=== PATIENT | female | born 1990 | race Caucasian/White ===

== ENCOUNTER 2019-11-20 10:36 | Inpatient (IN) | payer SELFPAY ==
[2019-11-20 11:56] LABS: #Eosinphils 0.4 thou/uL (0.0-0.7); #Lymphocytes 0.9 thou/uL (1.20-3.40); #Monocytes 0.5 thou/uL (0.11-0.59); #Neutrophils 7.5 thou/uL (1.40-6.50); %Basophils 0.1 % (0.0-1.0); %Eosinophils 4.6 % (0.0-10.0); %Lymphocytes 9.7 % (21.0-51.0); %Monocytes 5.3 % (0.0-10.0); %Neutrophils 80.3 % (42.0-75.0); Mean Corpuscular HGB CONC 33.3 g/dL (32.0-36.0); Mean Corpuscular Hemoglobin 31.1 pg (27.0-31.0); Mean Corpuscular Volume 93.3 fL (78.0-98.0); Mean Platelet Volume 8.8 fL (7.4-10.4); Platelet Count 153 thou/uL (130-400); Red Blood Cell (RBC) Count 4.51 mill/uL (4.20-5.40); White Blood Cell (WBC) Count 9.3 thou/uL (4.8-10.8)
[2019-11-20 11:58] LABS: BHCG - Serum Negative (NEGATIVE); Pregs Control Background? CLEAR/WHITE (CLR/WHITE); Pregs Control Bar Appear? YES (CONTROL BAR)
--- NOTE | 2019-11-20 12:02 | RAD ---
EXAM: Single view of the chest HISTORY: Abdominal pain for 5 days COMPARISON: None FINDINGS: Single view of the chest shows a normal sized cardiomediastinal silhouette. There is no berta dence of consolidation, mass, or pleural effusion. The bones are unremarkable. IMPRESSION: No evidence of acute cardiopulmonary disease
[2019-11-20 12:18] LABS: ALT (SGPT) 126 U/L (8-55); AST (SGOT) 58 U/L (5-34); Albumin 4.1 g/dL (3.5-5.0); Alkaline Phosphatase 219 U/L (40-110); Anion Gap 19 mmol/L (10-20); BUN (Urea Nitrogen) 7 mg/dL (7.0-18.7); Bilirubin, Total 4.1 mg/dL (0.2-1.2); Calc. Creatinine Clearance 0 mL/min (70-130); Carbon Dioxide 16 mmol/L (22-29); Chloride 103 mmol/L (98-107); Estimated GFR-MDRD 86; Globulin 3.5 g/dL (2.4-3.5); Glucose 87 mg/dL (70-105); Lipase 51 U/L (8-78); Potassium 4.5 mmol/L (3.5-5.1); Protein, Total 7.6 g/dL (6.0-8.3); Sodium 133 mmol/L (136-145)
[2019-11-20] MEDS ORDERED: Ondansetron PF 4 MG/2 ML Vial ONE (12:46)
[2019-11-20] MEDS ORDERED: Ketorolac Tromethamine 30 MG/ML VIAL ONE (12:46)
--- NOTE | 2019-11-20 13:01 | ULT ---
EXAM: US Gallbladder RUQ CLINICAL HISTORY: Right upper quadrant pain. COMPARISON: None. FINDINGS: Pancreas: Limited evaluation the pancreas. Visualized pancreatic parenchyma is grossly unremarkable Liver:Hepatic parenchyma has a normal echotexture. No hepatic masses or intrahepatic biliary dilatati on. The contour of the hepatic margin is maintained. Gallbladder: Gallbladder is not appreciated sonographically. Correlate for previous cholecystectomy v ersus contracted gallbladder due to nonfasting state. Gan's sign:Not commented upon Portal Vein: Patent. Appropriate directional flow Bile ducts: Suboptimal evaluation the common bile duct. Common hepatic duct appears to be 0.2 cm. Right kidney: No hydronephrosis. Right kidney measures 3.8 x 10.9 x 5.9 cm in length. IMPRESSION: 1. No acute abnormality. 2. Limited evaluation as described above. 3. If there is concern for cholecystitis, consider HIDA scan.
[2019-11-20] MEDS ORDERED: Acetaminophen 500 MG TAB ONE (13:04)
--- NOTE | 2019-11-20 13:45 | CT ---
CT Abdomen Pelvis W Con: 11/20/2019 1:06 PM CLINICAL INFORMATION: Aching abdominal pain COMPARISON: None. TECHNIQUE: Multiple contiguous axial images were obtained and a CT of the abdomen and pelvis with IV contrast. C oronal and sagittal reformats were performed. FINDINGS: Lower Chest: within normal limits. Abdomen: Liver: within normal limits. Bile Ducts: Normal caliber. Gallbladder: No calcified gallstones. Normal caliber wall. Pancreas: within normal limits. Spleen: within normal limits. Adrenals: within normal limits. Kidneys: within normal limits. Pelvis: Reproductive Organs: No pelvic masses. A trace amount of free fluid in the pelvis is likely physiolog ic. Ureters: within normal limits. Bladder: within normal limits. Peritoneum: No free air, no fluid collection. Bowel: Normal caliber. The appendix is not definitely visualized. Mesentery and Retroperitoneum: No enlarged mesenteric or retroperitoneal lymph nodes. Vessels: Normal. Abdominal Wall: within normal limits. Bones: Within normal limits IMPRESSION: No evidence of acute intraabdominal or pelvic abnormality.
[2019-11-20] MEDS ORDERED: MEROPENEM 1 GM/50 ML 1 GM in Premix Bag 1 BAG IVPB SCH (14:45)
--- NOTE | 2019-11-20 15:44 | PDOC.HHP ---
Hospitalist HPI - History of Present Illness RUQ abdominal pain History of Present Illness: Ms. Yu is a 29 y/o lady with no PMH who presents with RUQ abdominal pain, reportedly started on Saturday. States character of pain is pressure like, radiating across upper part of abdomen, timing has been intermittent since saturday, associated with an episode of vomiting and nausea on Saturday, severity is 7/10 at it's worst. She states she went to her primary care office where they redirected her to the ED because she had a fever of 102. In the ED, elevated Tbili of 4.1 and midly elevated LFTs, CT scan of abdomen unremarkable. She had Tmax of 103, given Merrem. Denies cp, sob, nausea, vomiting, diarrhea, headache, or associated sxs. Hospitalist ROS - Review of Systems Constitutional: denies: fever, chills, sweats, weakness, malaise, other Eyes: denies: pain, vision change, conjunctivae inflammation, eyelid inflammation, redness, other ENT: denies: ear pain, ear discharge, nose pain, nose discharge, nose congestion , mouth pain, mouth swelling, throat pain, throat swelling, other Respiratory: denies: cough, dry, shortness of breath, hemoptysis, SOB with excertion, pleuritic pain, sputum, wheezing, other Cardiovascular: denies: chest pain, palpitations, orthopnea, paroxysmal noc. dyspnea, edema, light headedness, other Gastrointestinal: reports: nausea, abdominal pain. 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 Gastrointestinal: reports: no pertinent history Heme/Onc: reports: no pertinent history Hepatobiliary: reports: no pertinent history Psych: reports: no pertinent history Musculoskeletal: reports: no pertinent history Rheumatologic: reports: no pertinent history Infectious Disease: reports: no pertinent history ENT: reports: no pertinent history Renal/: reports: no pertinent history Endocrine: reports: no pertinent history Dermatology: reports: no pertinent history - Past Surgical History Past Surgical History: reports: no pertinent history - Family History Family History: reports: hypertension - Social History Smoking Status: Never smoker Alcohol: reports: Occassional Drugs: reports: none Living Situation: With Family Activity level: independent ambulation - Exam General Appearance: NAD, awake alert Eye: PERRL, anicteric sclera ENT: normocephalic atraumatic, no oropharyngeal lesions, moist mucosa Neck: supple, symmetric, no JVD, no thyromegaly, no lymphadenopathy, no carotid bruit Heart: RRR, no murmur, no gallops, no rubs, normal peripheral pulses Respiratory: CTAB, no wheezes, no rales, no ronchi, normal chest expansion, no tachypnea, normal percussion Gastrointestinal: soft, non-distended, normal bowel sounds, no palpable masses, no hepatomegaly, no splenomegaly, no bruit, tender to palpation (RUQ) Extremities: no cyanosis, no clubbing, no edema Skin: normal turgor, no lesions, no rashes Neurological: cranial nerve grossly intact, normal sensation to touch, no weakness, no focal deficits, no new deficit Musculoskeletal: normal tone, normal strength, no muscle wasting Psychiatric: normal affect, normal behavior, A&O x 3 Hospitalist Results - Labs Result Diagrams: 11/20/19 11:10 11/20/19 11:10 Lab results: WBC 9.3 thou/uL (4.8-10.8) 11/20/19 11:10 Hgb 14.0 g/dL (12.0-16.0) 11/20/19 11:10 Hct 42.1 % (36.0-47.0) 11/20/19 11:10 MCV 93.3 fL (78.0-98.0) 11/20/19 11:10 Plt Count 153 thou/uL (130-400) 11/20/19 11:10 Neutrophils % 80.3 % (42.0-75.0) H 11/20/19 11:10 Sodium 133 mmol/L (136-145) L 11/20/19 11:10 Potassium 4.5 mmol/L (3.5-5.1) 11/20/19 11:10 Chloride 103 mmol/L (98-107) 11/20/19 11:10 Carbon Dioxide 16 mmol/L (22-29) L 11/20/19 11:10 BUN 7 mg/dL (7.0-18.7) 11/20/19 11:10 Creatinine 0.79 mg/dL (0.6-1.1) 11/20/19 11:10 Glucose 87 mg/dL (70-105) 11/20/19 11:10 Lactic Acid 1.0 mmol/L (0.5-2.2) 11/20/19 11:10 Calcium 9.0 mg/dL (7.8-10.44) 11/20/19 11:10 Total Bilirubin 4.1 mg/dL (0.2-1.2) H 11/20/19 11:10 AST 58 U/L (5-34) H 11/20/19 11:10 ALT 126 U/L (8-55) H 11/20/19 11:10 Alkaline Phosphatase 219 U/L (40-110) H 11/20/19 11:10 Serum Total Protein 7.6 g/dL (6.0-8.3) 11/20/19 11:10 Albumin 4.1 g/dL (3.5-5.0) 11/20/19 11:10 Lipase 51 U/L (8-78) 11/20/19 11:10 - Radiology Interpretation CT scan - abdomen Status: report reviewed by az Hospitalist H&P A/P - Problem (1) Abdominal pain Code(s): R10.9 - UNSPECIFIED ABDOMINAL PAIN Status: Acute Qualifiers: Qualified Code(s): R10.11 - Right upper quadrant pain Assessment and Plan: DDX: Cholangitis, Cholecystitis, Choledocholithiasis, no stones seend on U/S or CT, pending HIDA, unclear etiology (2) Elevated liver enzymes Code(s): R74.8 - ABNORMAL LEVELS OF OTHER SERUM ENZYMES Status: Acute - Plan Plan: Admit for med/surg obs. Discussed with ED, US abdomen and CT scan unremarkable, CBD cannot be commented upon GI and surgical teams have been consutled by ED Pending HIDA scan Given fever, RUQ pain, will add empiric Zosyn for possible cholangitis Follow up cultures NS @ 75ml/hr Zofran PRN for nausea Morphine PRN for pain DVT Prophylaxis: SCDs Code status: Full Dispo: Admit to medical obs. Evaluation of ab pain.
[2019-11-20 16:02] VITALS: BMI 24.9
[2019-11-20] MEDS: Sodium Chloride 0.9% 1,000 ML IV SCH (16:55)
[2019-11-20] MEDS ORDERED: Sodium Chloride 0.9% 500 ML IV SCH (18:00)
[2019-11-20] MEDS: Piperacillin/Tazobactam 3.375 GM in Sodium Chloride 0.9% 100 ML IVPB SCH ×2 (18:18→23:35)
[2019-11-20] MEDS: traMADol HCl 50 MG TAB PO PRN (18:25)
[2019-11-20] MEDS: Acetaminophen 325 MG TAB PO PRN (18:25)
--- NOTE | 2019-11-20 21:42 | CON ---
DATE OF CONSULTATION: 11/20/2019 REASON FOR CONSULTATION: Abdominal pain, nausea, fever, and abnormal LFTs. HISTORY OF PRESENT ILLNESS: Rebecca Yu is a very pleasant 29-year-old, healthy female, developed abdominal pain this past Saturday. The pain was sudden in onset. The pain was cramping in nature. The pain was over the right upper quadrant and also across the abdomen. Pain was cramping in nature and also had some nausea and had one episode of vomiting. The pain persisted over the past 2 to 3 days. She did not want to come to the hospital because of the holidays. On , she had a reasonably good day and the pain was not as bad as it was before. The pain got worse over the next 24 hours and she has gone to see Dr. Derrick Mcdermott's PA. Because of the fever, she was advised to come to the ER. The patient has had no prior health issues. She had no prior surgeries. The patient has had no previous abdominal pain. The abdominal pain started this past Saturday. Pain was cramping in nature and [id number]. She had no fever started. She had mild nausea, but had one episode of vomiting subsequently. At the present time, she appears very comfortable, in no acute distress. Apparently, she has used pain medication few minutes ago. The patient had abnormal LFTs in the ER. Her bilirubin level was 4.1, alkaline phosphatase and transaminases are slightly elevated. She had abdominal sonogram, which shows no bile duct dilatation. The gallbladder appears contracted and not visualized. Abdominal CAT scan, which revealed gallbladder and no bile duct dilation seen. The patient had no leukocytosis. There is no bandemia. She had been empirically started on IV antibiotics for possible cholangitis. She has no relevant history. ALLERGIES: NONE. SOCIAL HISTORY: The patient does not smoke or drink alcohol. MEDICAL ILLNESSES: None. PAST SURGICAL HISTORY: None. MENSTRUAL HISTORY: Periods are irregular. She was on oral contraceptives 2 months ago. She could take care of the control pill couple of days ago because of abdominal pain. She was having her menstrual cycles from this morning. FAMILY HISTORY: Grandmother had gallbladder disease and had her gallbladder removed. Otherwise, family history is not known. REVIEW OF SYSTEMS: 10-point system reviewed. CONSTITUTIONAL: No history of fever. No weight loss. Has good exercise tolerance. HEENT: No chronic headache. Eyes; no diplopia, no impaired vision. Ears; no hearing loss. Nose; no nosebleed. Throat; no sore throat, coughing. NECK: No stiffness or any limitation of movement. BREASTS: No breast masses or discharge. LUNGS: No chronic coughing, hemoptysis, or dyspnea. CARDIOVASCULAR SYSTEM: No chest pain. No palpitation. No dyspnea, orthopnea, or PND. GI: As in history of present illness. : No dysuria, frequency of urination, or hematuria. MUSCULOSKELETAL: Unremarkable. NEUROENDOCRINE: Unremarkable. PSYCHIATRY: Unremarkable. PHYSICAL EXAMINATION: GENERAL: She is thin built, appears very comfortable. VITAL SIGNS: Temperature in the ER was 103, but now down to 98.2 degrees Fahrenheit. Her pulse is around 67, blood pressure 91/52. HEENT: She is icteric. NECK: Supple. No adenitis or thyromegaly noted. CARDIOVASCULAR SYSTEM: First and second heart sounds heard. LUNGS: Clear to auscultation. ABDOMEN: Soft. Abdomen is nondistended. Abdomen is tender over the right upper quadrant, epigastric area. She has no rebound or guarding. No organomegaly. No masses. Bowel sounds normal. EXTREMITIES: Reveal no edema. LABORATORY DATA: Shows normal WBC count of 9300, no bandemia, polymorphs 80, lymphocytes 9, monocytes 5. Hemoglobin 14, hematocrit 42.1, MCV 93.3. Chem-7 is normal. Sodium 133, bilirubin 4.1, AST is 258, ALT 126, alkaline phosphatase 219, lipase 51. Pulmonary tests negative. Abdominal CAT scan shows no abnormal findings except for normal appearing bile duct. No bile duct dilatation. Abdominal sonogram shows no gallbladder identified, but possibly contracted gallbladder. The common hepatic duct is 2 mm. CLINICAL IMPRESSION: Abdominal pain, nausea, and vomiting. Abnormal LFTs suggestive of cholecystitis. I am not sure if she has any cholangitis. She does not appear septic and she had no leukocytosis, no bandemia. Cholecystitis can present with abnormal LFTs. At the present time, the workup has been basically negative as there is no bile duct dilation seen and also no definite gallstones seen. The gallbladder was not visualized from the sonogram. I did discuss with Dr. Mcleod and the plan is to proceed with a HIDA scan tomorrow. Dr. Parrent will evaluate the patient and I believe she most likely will need a cholecystectomy from the history and physical findings. This was conveyed to the patient's family. Job ID: [id number]
[2019-11-20] MEDS: Ondansetron PF 4 MG/2 ML Vial IVP PRN (23:38)
[2019-11-21] MEDS: Sodium Chloride 0.9% 1,000 ML IV SCH ×3 (00:45→21:24)
[2019-11-21] MEDS: Acetaminophen 325 MG TAB PO PRN ×2 (00:45→23:02)
[2019-11-21] MEDS: traMADol HCl 50 MG TAB PO PRN ×2 (00:45→22:59)
[2019-11-21] MEDS: Morphine 2 MG/ML SYRINGE SLOW IVP PRN ×2 (03:16→11:48)
[2019-11-21] MEDS: Piperacillin/Tazobactam 3.375 GM in Sodium Chloride 0.9% 100 ML IVPB SCH ×3 (05:40→19:31)
[2019-11-21 05:46] LABS: #Eosinphils 0.4 thou/uL (0.0-0.7); #Lymphocytes 0.7 thou/uL (1.20-3.40); #Monocytes 0.3 thou/uL (0.11-0.59); #Neutrophils 5.6 thou/uL (1.40-6.50); %Basophils 0.2 % (0.0-1.0); %Eosinophils 5.8 % (0.0-10.0); %Lymphocytes 9.8 % (21.0-51.0); %Monocytes 3.5 % (0.0-10.0); %Neutrophils 80.7 % (42.0-75.0); Hemoglobin 11.5 g/dL (12.0-16.0); Mean Corpuscular HGB CONC 33.7 g/dL (32.0-36.0); Mean Corpuscular Hemoglobin 31.8 pg (27.0-31.0); Mean Corpuscular Volume 94.3 fL (78.0-98.0); Mean Platelet Volume 8.7 fL (7.4-10.4); Platelet Count 136 thou/uL (130-400); RBC Distribution Width 11.9 % (11.5-14.5); Red Blood Cell (RBC) Count 3.62 mill/uL (4.20-5.40)
[2019-11-21 06:13] LABS: ALT (SGPT) 80 U/L (8-55); AST (SGOT) 27 U/L (5-34); Alkaline Phosphatase 153 U/L (40-110); Anion Gap 9 mmol/L (10-20); BUN (Urea Nitrogen) 8 mg/dL (7.0-18.7); Bilirubin, Total 3.8 mg/dL (0.2-1.2); Calc. Creatinine Clearance 122 mL/min (70-130); Calcium 7.6 mg/dL (7.8-10.44); Carbon Dioxide 23 mmol/L (22-29); Chloride 107 mmol/L (98-107); Estimated GFR-MDRD Greater than 90; Globulin 2.6 g/dL (2.4-3.5); Glucose 103 mg/dL (70-105); Potassium 3.8 mmol/L (3.5-5.1); Protein, Total 5.6 g/dL (6.0-8.3); Sodium 135 mmol/L (136-145)
[2019-11-21] MEDS ORDERED: Acetaminophen 1,000 MG in Premix Bag 1 BAG IVPB PRN (09:41)
[2019-11-21] MEDS ORDERED: Ketorolac Tromethamine 30 MG/ML VIAL IVP SCH (11:15)
[2019-11-21] MEDS: Ondansetron PF 4 MG/2 ML Vial IVP PRN (13:24)
--- NOTE | 2019-11-21 13:43 | NM ---
EXAM: Nuclear medicine hepatobiliary scan HISTORY: Right upper quadrant abdominal pain TECHNIQUE: A nuclear medicine hepatobiliary scan was performed after administration of 5.1 mCi of rolo hnetium 99m mebrofenin. COMPARISON: None FINDINGS: Prompt uptake of the radiopharmaceutical by the liver is seen. No photopenic liver defects are seen. Minimal excretion of the radiopharmaceutical is seen by the liver. Biliary activity is unable to be appreciated. Gallbladder activity is not seen. Bowel activity is seen within 30 minutes. IMPRESSION: The gallbladder was not visualized suspicious for acute cholecystitis. Alternatively, the patient cou ld have severe hepatocellular dysfunction with minimal excretion of the contrast into the biliary tree.
--- NOTE | 2019-11-21 14:08 | PDOC.HOSPP ---
- Subjective Encounter Date: 11/21/19 Encounter Time: 13:10 Subjective: RUQ pain.. - Objective Vital Signs & Weight: Vital Signs (12 hours) Temp Pulse Resp BP BP BP Pulse Ox 11/21/19 11:45 97.8 F 114 H 99/64 11/21/19 08:10 99.0 F 99 16 104/51 L 95 11/21/19 03:12 98.4 F 87 16 90/52 L 94 L Weight Admit Weight 154 lb 4.8 oz Weight 154 lb 4.8 oz I&O: 11/20/19 11/21/19 11/22/19 06:59 06:59 06:59 Intake Total 2258 1 Output Total 400 800 Balance 6040 -789 Result Diagrams: 11/21/19 05:38 11/21/19 05:38 Hospitalist ROS - Medication Medications: Active Medications Generic Name Dose Route Start Last Admin Trade Name Freq PRN Reason Stop Dose Admin Acetaminophen 325 mg 11/20/19 17:52 11/21/19 00:45 Tylenol PO 325 mg Q6H PRN Administration Pain Sodium Chloride 1,000 mls @ 125 mls/hr 11/20/19 15:45 11/21/19 12:02 Normal Saline 0.9% IV 1,000 mls .Q8H JESSY Administration Piperacillin Sod/Tazobactam 100 mls @ 200 mls/hr 11/20/19 18:00 11/21/19 13: 46 Sod 3.375 gm/ Sodium Chloride IVPB 100 mls Q6HR JESSY Administration Acetaminophen 1,000 mg/ Device 100 mls @ 400 mls/hr 11/21/19 09:41 11/21/19 13:07 IVPB 11/22/19 09:42 100 mls Q6H PRN Administration Fever/Mild Pain Morphine Sulfate 2 mg 11/20/19 15:40 11/21/19 11:48 Morphine SLOW IVP 2 mg Q4H PRN Administration Severe Pain (7-10) Ondansetron HCl 4 mg 11/20/19 15:40 11/21/19 13:24 Zofran IVP 4 mg Q6H PRN Administration Nausea/Vomiting Tramadol HCl 50 mg 11/20/19 17:51 11/21/19 00:45 Ultram PO 50 mg Q6H PRN Administration Pain - Exam Eye: scleral icterus Neck: no JVD Heart: RRR Respiratory: CTAB Gastrointestinal: soft Gastrointestinal - other findings: +RUQ tenderness.. Extremities: no edema Psychiatric: normal affect Hosp A/P (1) Abdominal pain Code(s): R10.9 - UNSPECIFIED ABDOMINAL PAIN Status: Acute Qualifiers: Qualified Code(s): R10.11 - Right upper quadrant pain (2) Elevated liver enzymes Code(s): R74.8 - ABNORMAL LEVELS OF OTHER SERUM ENZYMES Status: Acute - Plan ?Cholecystitis.. Consult surgery..
[2019-11-21] MEDS ORDERED: Fentanyl 100 MCG/2 ML VIAL SLOW IVP PRN (14:36)
--- NOTE | 2019-11-21 15:08 | CON ---
DATE OF CONSULTATION: 11/21/2019 CHIEF COMPLAINT: Abdominal pain. HISTORY OF PRESENT ILLNESS: This is a 29-year-old female, who has a history of pain in her right upper abdomen and upper middle abdomen since -Saturday. She describes that as sharp pain, goes away when she lays flat. It never completely goes away. This is associated with overall not feeling well. She has had borderline temperatures. She has had body aches. She has had headache. Seen in the emergency room, where ultrasound revealed contracted gallbladder without stones. CT scan showed no intraabdominal abnormality. She has now had HIDA scan, which shows either acute acalculous cholecystitis versus hepatocellular dysfunction. Her symptoms are improved with pain medicine. She still has temperatures up to 100. She is tachycardic at times as well. The patient denies history of gallstones, jaundice or pancreatitis. She denies foreign travel. She recently started a new medication, a new type of control pill, and at first thought that her overall sense of feeling ill was related to that, so they stopped. She was constipated on Jim and took MiraLAX with good results, but she denies history of severe vomiting. No severe diarrhea or dehydration. PAST MEDICAL HISTORY: Negative otherwise. PAST SURGICAL HISTORY: Negative otherwise. MEDICATIONS: Medicines taken daily none. ALLERGIES: NONE. FAMILY HISTORY: No history of GI-associated malignancies or anesthetic related complications. 10-system review of systems is otherwise negative unless described above. PHYSICAL EXAMINATION: VITAL SIGNS: Her pulse is 116. Her blood pressure is 105/59. Her temperature is 100.8. Her respirations are 20. HEENT: Sclerae anicteric. Oropharynx clear. NECK: No lymphadenopathy. CHEST: Clear. HEART: Increased rate, regular rhythm without murmur. ABDOMEN: Soft, diffusely tender, but more tender in the epigastric and right upper quadrant. She has right upper quadrant guarding without rebound. LABORATORY DATA: White blood cell count is 7, hemoglobin is 11, and platelet count is 136. Sodium 135, potassium 3.8, and creatinine 0.75. Bilirubin 3.8, AST 27, ALT 80, alk phos 153. Albumin is 3. Lipase yesterday was 51. CT, ultrasound, HIDA as above. ASSESSMENT: Abdominal pain, mostly right upper quadrant with elevated liver function test. Ultrasound shows no gallstones. HIDA shows no obvious obstruction of the common bile duct because there was uptake in the duodenum, but it does not show the gallbladder. These findings could be consistent with acalculous cholecystitis, but that does not explain the body aches or the liver function test elevation. She could have some component of acalculous cholecystitis along with whatever other else is going on. My recommendation is recheck liver function tests tomorrow, continue supportive care, would prefer to have her liver test trending down prior to general anesthetic and laparoscopic cholecystectomy. Agree with continuing antibiotics. Job ID: [id number]
[2019-11-21 16:39] LABS: HBCM Index 0.22 S/CO (0-0.79); HBSAg Index 0.26 S/CO (0-0.99); Hep A IgM AB Non-Reactive (NonReactive); Hep A IgM S/CO 0.14 S/CO (0-0.79); Hep B Surf Ag Non-Reactive S/CO (NonReactive); Hep C IgG Ab Non-Reactive (NonReactive); Hep C Index 0.12 S/CO (0-0.79); Hepatitis B Core IgM Abs Non-Reactive (NonReactive)
[2019-11-21] MEDS: Fentanyl 100 MCG/2 ML VIAL SLOW IVP PRN ×2 (18:17→21:22)
[2019-11-21] MEDS: Ketorolac Tromethamine 30 MG/ML VIAL IVP PRN (19:32)
[2019-11-22] MEDS: Piperacillin/Tazobactam 3.375 GM in Sodium Chloride 0.9% 100 ML IVPB SCH ×3 (00:06→12:44)
[2019-11-22] MEDS: Ketorolac Tromethamine 30 MG/ML VIAL IVP PRN ×2 (01:46→08:11)
[2019-11-22] MEDS: Sodium Chloride 0.9% 1,000 ML IV SCH ×2 (05:32→12:44)
[2019-11-22] MEDS: Fentanyl 100 MCG/2 ML VIAL SLOW IVP PRN (05:32)
[2019-11-22 06:26] LABS: #Eosinphils 0.7 thou/uL (0.0-0.7); #Lymphocytes 0.8 thou/uL (1.20-3.40); #Monocytes 0.2 thou/uL (0.11-0.59); #Neutrophils 4.8 thou/uL (1.40-6.50); %Basophils 0.2 % (0.0-1.0); %Eosinophils 10.4 % (0.0-10.0); %Monocytes 3.6 % (0.0-10.0); %Neutrophils 73.9 % (42.0-75.0); Mean Corpuscular HGB CONC 32.7 g/dL (32.0-36.0); Mean Corpuscular Hemoglobin 30.7 pg (27.0-31.0); Mean Corpuscular Volume 93.9 fL (78.0-98.0); Mean Platelet Volume 8.8 fL (7.4-10.4); Platelet Count 141 thou/uL (130-400); RBC Distribution Width 12.1 % (11.5-14.5); Red Blood Cell (RBC) Count 3.89 mill/uL (4.20-5.40); White Blood Cell (WBC) Count 6.5 thou/uL (4.8-10.8)
[2019-11-22 06:49] LABS: ALT (SGPT) 55 U/L (8-55); AST (SGOT) 18 U/L (5-34); Alkaline Phosphatase 145 U/L (40-110); Anion Gap 12 mmol/L (10-20); BUN (Urea Nitrogen) 11 mg/dL (7.0-18.7); Bilirubin, Total 4.3 mg/dL (0.2-1.2); Calc. Creatinine Clearance 148 mL/min (70-130); Calcium 7.8 mg/dL (7.8-10.44); Carbon Dioxide 21 mmol/L (22-29); Chloride 108 mmol/L (98-107); Estimated GFR-MDRD Greater than 90; Globulin 2.7 g/dL (2.4-3.5); Glucose 74 mg/dL (70-105); Potassium 3.6 mmol/L (3.5-5.1); Protein, Total 5.7 g/dL (6.0-8.3); Sodium 137 mmol/L (136-145)
--- NOTE | 2019-11-22 09:44 | PDOC.HOSPP ---
- Subjective Encounter Date: 11/22/19 Encounter Time: 07:35 Subjective: Feels better..Had pain medications earlier.. - Objective Vital Signs & Weight: Vital Signs (12 hours) Temp Pulse Resp BP Pulse Ox 11/22/19 08:04 99.6 F 93 16 104/57 L 91 L 11/22/19 04:00 98.1 F 82 18 91/50 L 96 11/22/19 00:00 98.2 F 82 18 91/55 L 98 Weight Admit Weight 154 lb 4.8 oz Weight 154 lb 4.8 oz I&O: 11/21/19 11/22/19 11/23/19 06:59 06:59 06:59 Intake Total 2258 3766 Output Total 400 1100 200 Balance 1858 2666 -200 Result Diagrams: 11/22/19 06:09 11/22/19 06:09 Hospitalist ROS - Medication Medications: Active Medications Generic Name Dose Route Start Last Admin Trade Name Freq PRN Reason Stop Dose Admin Acetaminophen 325 mg 11/20/19 17:52 11/21/19 23:02 Tylenol PO 325 mg Q6H PRN Administration Pain Fentanyl 50 mcg 11/21/19 14:36 11/22/19 05:32 Sublimaze SLOW IVP 50 mcg Q2H PRN Administration Moderate to Severe Pain (6-10) Sodium Chloride 1,000 mls @ 125 mls/hr 11/20/19 15:45 11/22/19 05:32 Normal Saline 0.9% IV 1,000 mls .Q8H JESSY Administration Piperacillin Sod/Tazobactam 100 mls @ 200 mls/hr 11/20/19 18:00 11/22/19 05: 31 Sod 3.375 gm/ Sodium Chloride IVPB 100 mls Q6HR JESSY Administration Ketorolac Tromethamine 30 mg 11/21/19 14:37 11/22/19 08:11 Toradol IVP 11/26/19 14:38 30 mg Q6H PRN Administration Pain Ondansetron HCl 4 mg 11/20/19 15:40 11/21/19 13:24 Zofran IVP 4 mg Q6H PRN Administration Nausea/Vomiting Tramadol HCl 50 mg 11/20/19 17:51 11/21/19 22:59 Ultram PO 50 mg Q6H PRN Administration Pain - Exam General Appearance: NAD Eye: scleral icterus Neck: no JVD Heart: RRR Respiratory: CTAB Gastrointestinal: soft (RUQ tenderness..) Hosp A/P (1) Abdominal pain Status: Acute Qualifiers: Qualified Code(s): R10.11 - Right upper quadrant pain (2) Elevated liver enzymes Code(s): R74.8 - ABNORMAL LEVELS OF OTHER SERUM ENZYMES Status: Acute (3) Cholecystitis Code(s): K81.9 - CHOLECYSTITIS, UNSPECIFIED Status: Acute (4) Cholecystitis Code(s): K81.9 - CHOLECYSTITIS, UNSPECIFIED Status: Acute - Plan For possible surgery today.. Continue current management.. f/u with general surgery..
[2019-11-22] MEDS ORDERED: PROPOFOL 200 MG/20 ML VIAL ONE (10:04)
[2019-11-22] MEDS ORDERED: Ketorolac Tromethamine 30 MG/ML VIAL ONE (10:04)
[2019-11-22] MEDS ORDERED: Ondansetron PF 4 MG/2 ML Vial ONE (10:04)
[2019-11-22] MEDS ORDERED: Lidocaine 1% PF 5 ML VIAL ONE (10:04)
[2019-11-22] MEDS ORDERED: Glycopyrrolate 0.2 MG/ML 5 ML SYRINGE ONE (10:04)
[2019-11-22] MEDS ORDERED: Dexamethasone 20 MG/5 ML VIAL ONE (10:04)
[2019-11-22] MEDS ORDERED: Rocuronium Bromide 10 MG/ML (10ML VIAL) ONE (10:04)
[2019-11-22] MEDS ORDERED: Bupivacaine 0.25% HCL 30 ML VIAL ONE ×2 (10:06→10:47)
[2019-11-22] MEDS ORDERED: Iothalamate Meglumine 60% 50 ML VIAL FS ONE (10:06)
[2019-11-22] MEDS ORDERED: Midazolam HCl 2 mg/2 ml Vial ONE (10:27)
[2019-11-22] MEDS ORDERED: Fentanyl 100 MCG/2 ML VIAL ONE ×2 (10:27→12:05)
[2019-11-22] MEDS ORDERED: HYDROmorphone 0.5 MG/0.5 ML SYRINGE ONE (10:31)
[2019-11-22] MEDS ORDERED: Promethazine HCl 25 MG/ML VIAL IM PRN ×2 (10:55→12:41)
[2019-11-22] MEDS ORDERED: Ondansetron HCl/PF 4 MG/2 ML Vial IVP PRN (10:55)
[2019-11-22] MEDS ORDERED: HYDROmorphone 2 MG/ML VIAL SLOW IVP PRN (10:55)
[2019-11-22] MEDS ORDERED: Promethazine HCl 25 MG/ML VIAL SLOW IVP PRN (10:55)
[2019-11-22] MEDS ORDERED: PACU-Morphine 4MG/ML VIAL SLOW IVP PRN (10:55)
--- NOTE | 2019-11-22 11:31 | RAD ---
EXAM: Cholangiogram in surgery HISTORY: Cholelithiasis COMPARISON: None FINDINGS: Limited intraoperative fluoroscopic views were taken during a cholangiogram in surgery. The common bile duct is normal in caliber without filling defect. No leakage from the common bile duct. Contrast passes into the duodenum. No abnormality of the intrahepatic bile ducts. IMPRESSION: Unremarkable cholangiogram
[2019-11-22] MEDS ORDERED: Morphine 4 MG/ML VIAL SLOW IVP PRN (12:41)
[2019-11-22] MEDS ORDERED: Mag-Al 1200 mg/1200 mg/30 ML UDCUP PO PRN (12:41)
[2019-11-22] MEDS ORDERED: Ondansetron PF 4 MG/2 ML Vial IVP PRN (12:41)
[2019-11-22] MEDS ORDERED: hydrALAZINE 20 MG/ML VIAL SLOW IVP PRN (12:41)
[2019-11-22] MEDS ORDERED: Morphine 2 MG/ML SYRINGE SLOW IVP PRN (12:41)
[2019-11-22] MEDS ORDERED: Calcium Carbonate 500 MG ChewTAB PO PRN (12:41)
[2019-11-22] MEDS ORDERED: Dextrose 50% Abboject 50 ML SYRINGE SLOW IVP PRN (12:41)
[2019-11-22] MEDS ORDERED: Dextrose 5% in Water 1,000 ML IV PRN (12:41)
[2019-11-22] MEDS: D5 1/2 NS w/20 mEq KCL 1,000 ML IV SCH ×2 (16:12→21:00)
[2019-11-22] MEDS: HYDROcodone/Acetaminophen 7.5/325 mg Tablet PO PRN ×2 (16:16→22:25)
--- NOTE | 2019-11-22 16:42 | OP ---
DATE OF PROCEDURE: 11/22/2019 PREOPERATIVE DIAGNOSES: Acute acalculous cholecystitis, hepatic cholestasis. POSTOPERATIVE DIAGNOSES: Acute acalculous cholecystitis, hepatic cholestasis. PROCEDURES PERFORMED: 1. Laparoscopic cholecystectomy with intraoperative cholangiogram. 2. Percutaneous liver biopsy. ANESTHESIA: General. ESTIMATED BLOOD LOSS: Minimal. COMPLICATIONS: None. SPECIMEN: Liver biopsy and gallbladder. FINDINGS: Normal cholangiogram. DESCRIPTION OF PROCEDURE: The patient was taken to the operating room and laid supine on the operating room table. After general anesthetic, the abdomen was prepped and draped in a sterile fashion. A curved incision was made below the umbilicus. Cautery was dissected down to and score the fascia. Abdominal cavity was entered bluntly using a Anastacia clamp. Holding stitch of PDS was placed on each side of the fascia. Edgar trocar was placed. High-flow pneumoperitoneum was obtained. Upper midline 5-mm port and two right upper quadrant 5-mm ports were placed under direct visualization. The gallbladder was retracted from the gallbladder fossa. The peritoneum was opened anteriorly and posteriorly. The critical view triangle was seen showing only the cystic duct and cystic artery branching medial to lateral. There were no other branching structures. A clip was placed high on the cystic duct. A small ductotomy was made just proximal to that. A cholangiocatheter was brought in through a separate stab incision and a cholangiogram was performed, which showed good contrast flow into the duodenum, right and left hepatic duct system without obstruction. There was no dilation. There was no stricture. The cholangiocatheter was removed. Two clips were placed proximally on the cystic duct and it was cut using laparoscopic scissors. Cystic artery was taken using 2 clips proximally and one clip distally, cut using laparoscopic scissors. Cautery was used to dissect the gallbladder out of the gallbladder fossa. Gallbladder was placed in an Endo Catch bag and brought out through the Edgar. Meticulous hemostasis was obtained in the liver bed. Percutaneous liver biopsy was performed and hemostasis was obtained at biopsy sites. All port sites were infiltrated using local anesthetic. All ports were removed under camera visualization. Pneumoperitoneum was let down. PDS was used to close the fascial defect below the umbilicus. All incisions were irrigated and closed using 4-0 Monocryl and Dermabond. The patient was sent to Recovery in stable condition. All instrument counts, needle counts, and lap counts were correct. Job ID: [id number]
[2019-11-22] MEDS: Famotidine 20 MG TAB PO SCH (20:51)
[2019-11-22] MEDS: Famotidine/PF 20 mg/2ml Vial SLOW IVP SCH (20:55)
[2019-11-23] MEDS: D5 1/2 NS w/20 mEq KCL 1,000 ML IV SCH (00:35)
[2019-11-23] MEDS: HYDROcodone/Acetaminophen 7.5/325 mg Tablet PO PRN ×3 (04:39→11:25)
[2019-11-23 06:26] LABS: Eosinophils 7 % (0-10); Hemoglobin 11.2 g/dL (12.0-16.0); Lymphocytes 14 % (21-51); MDiff Complete? YES; Mean Corpuscular HGB CONC 30.7 g/dL (32.0-36.0); Mean Corpuscular Hemoglobin 28.9 pg (27.0-31.0); Mean Corpuscular Volume 94.1 fL (78.0-98.0); Mean Platelet Volume 10.2 fL (7.4-10.4); Monocytes 2 % (0-10); Neutrophil 76 % (42-75); Platelet Count 82 thou/uL (130-400); Platelet Morphology Comment Appears Decreased; RBC Distribution Width 12.3 % (11.5-14.5); Red Blood Cell (RBC) Count 3.87 mill/uL (4.20-5.40); White Blood Cell (WBC) Count 4.4 thou/uL (4.8-10.8)
[2019-11-23 06:34] LABS: ALT (SGPT) 54 U/L (8-55); AST (SGOT) 34 U/L (5-34); Albumin 2.7 g/dL (3.5-5.0); Alkaline Phosphatase 148 U/L (40-110); Anion Gap 11 mmol/L (10-20); BUN (Urea Nitrogen) 10 mg/dL (7.0-18.7); Calc. Creatinine Clearance 167 mL/min (70-130); Calcium 7.8 mg/dL (7.8-10.44); Carbon Dioxide 21 mmol/L (22-29); Chloride 108 mmol/L (98-107); Estimated GFR-MDRD Greater than 90; Globulin 2.7 g/dL (2.4-3.5); Glucose 120 mg/dL (70-105); Potassium 4.4 mmol/L (3.5-5.1); Protein, Total 5.4 g/dL (6.0-8.3); Sodium 136 mmol/L (136-145)
[2019-11-23] MEDS: Famotidine 20 MG TAB PO SCH (07:40)
[2019-11-23] MEDS: Famotidine/PF 20 mg/2ml Vial SLOW IVP SCH (09:15)
[2019-11-23 11:43] VITALS: BP 103/61; TEMP 97.9
--- NOTE | 2019-11-24 01:50 | DIS ---
DATE OF ADMISSION: 11/20/2019 DATE OF DISCHARGE: 11/23/2019 DISCHARGE DISPOSITION: Home. DISCHARGE DIAGNOSES: 1. Acalculous cholecystitis. 2. Abdominal pain secondary to #1. DISCHARGE MEDICATIONS: None. PROCEDURES DONE DURING ADMISSION: The patient had an abdominal ultrasound showing no acute abnormality. The patient had a CT scan of the abdomen and pelvis. There was no evidence of any acute intra-abdominal or pelvic abnormality. The patient had a HIDA scan showing nonvisualization of the gallbladder suspicious for acute cholecystitis. The patient had a laparoscopic cholecystectomy and intraoperative cholangiogram. HOSPITAL COURSE: Ms. Yu is a pleasant 29-year-old female, who was admitted to the hospital after having abdominal pain in the right upper quadrant. She was placed in observation. She was seen by Gastroenterology, who recommended having a HIDA scan done due to her symptoms given that the abdominal ultrasound was negative. There was evidence of nonvisualization of the gallbladder and for this reason, General Surgery was consulted. The patient underwent a laparoscopic cholecystectomy with intraoperative cholangiogram. She had an uneventful postoperative course and was subsequently able to be discharged home the following day. Outpatient followup will be arranged by the General Surgery team with Dr. Mcleod. Job ID: [id number]
== END 2019-11-23 11:45 | disposition home or self-care (01) | DRG 419 ==
LOC: EDBD 10:36 → ERS 10:36 → 2SW 14:30 → OBSVTOIN 14:30 → 3SE 11-21 17:29
PROVIDERS: ADMIT Internal Medicine; ATTEND Internal Medicine
PROC: 0FT44ZZ Resection of Gallbladder, Percutaneous Endoscopic Approach (ICD-10-PCS; principal; 2019-11-22)
PROC: BF131ZZ Fluoroscopy of Gallbladder and Bile Ducts using Low Osmolar Contrast (ICD-10-PCS; 2019-11-22)
PROC: 0FD03ZX Extraction of Liver, Percutaneous Approach, Diagnostic (ICD-10-PCS; 2019-11-22)
DX: K81.0 Acute cholecystitis (principal)
CPT/HCPCS: 36415; 47532; 71045; 74177; 76705; 78227; 80053; 80074; 83605; 83690; 84703; 85025; 87040; 87804; 88304; 88307; 88313; 93005; 96361; 96374; 96375; A9537; J0131; J1100; J1170; J1885; J2001; J2185; J2250; J2270; J2405; J2543; J2704; J3010; J3490; S0020